=== PATIENT | female | born 1980 | race Caucasian/White ===

== ENCOUNTER → 2021-06-11 10:23 | Outpatient (CLI) | payer BC, SELFPAY ==
--- NOTE | ~2021-06-11 | US_ITS ---
EXAMINATION: US transvaginal DATE: 06/11/2021 10:46 INDICATION: Family history of fibroids. Comparison:No prior studies for comparison. TECHNIQUE: Multiple endovaginal sonographic images of the pelvis performed. FINDINGS: The uterus measures 9.5 x 4.6 x 6.3 cm. There is a uterine fibroid on the left at the fundu s measuring 1.8 x 1.6 x 1.4 cm. The endometrial complex measures 1 cm. The right ovary measures 3.6 x 1.5 x 2.9 cm and the left ovary measures 2.4 x 2.6 x 2.5 cm. There is a small partially cystic mass in the right ovary measuring 1.8 x 2.1 x 1.4 cm, likely an involuting c orpus luteal cyst. There are small follicles in each ovary. Normal doppler signal in both ovaries. There is no free fluid in the pelvis. There are no abnormal masses seen on either side. IMPRESSION: 1. Complex cystic lesion of the right ovary measuring up to 2.1 cm, most likely involuting corpus lut eal cyst, although follow-up ultrasound in 4-6 weeks recommended to assess for resolution. 2: Small uterine fibroid measuring 1.8 cm maximum dimension at the fundus. Reviewed, dictated and finalized at location A. [employer] ENGINE[employer] IMPRESSION: 1. Complex cystic lesion of the right ovary measuring up to 2.1 cm, most likely involuting corpus luteal cyst, although follow-up ultrasound in 4-6 weeks arcadio mmended to assess for resolution. 2: Small uterine fibroid measuring 1.8 cm maximum dimension at the fundus.
== END ==
PROVIDERS: Visit Provider Nurse Practitioner
DX: N92.0 Excessive and frequent menstruation with regular cycle (principal); N83.8 Other noninflammatory disorders of ovary, fallopian tube and broad ligament; D25.9 Leiomyoma of uterus, unspecified
CPT/HCPCS: 76830

== ENCOUNTER 2021-07-11 00:59 | Day surgery (SDC) | payer BC, SELFPAY ==
[2021-07-06 09:05] VITALS: BMI 25.7
--- NOTE | 2021-07-06 09:06 | PC.NURSE ---
Report to the Outpatient Waiting Room, entrance under the green pavilion located off [facility], at time _0600___ on date 07/11/21____. OR Time: . - You and your visitor will be asked a series of questions to screen for COVID 19 for your protection. - A mask is required within the hospital. Preoperative COVID Testing Requirements: No COVID Test needed if: (proof is required; if not received patient will have Rapid Test prior to entry) - Patient has received COVID Vaccine at least 14 days prior to procedure date or - Patient has positive COVID test result within last 90 days of surgery date. COVID Test needed if above criteria is not met If not COVID vaccinated a COVID test must be conducted within 72 hours of surgery and patient is asked to isolate self from time of testing until procedure. You will go to the [facility] for your COVID testing. The [facility] is located at the corner of [address] [facility]. You will only be called if COVID results are positive and your surgeon may reschedule your elective surgery date. Patients may have clear liquids (water, carbonated beverages, clear teas, apple juice) until 3 hours prior to surgery with a maximum of 20 ounces. - No food from midnight until time of surgery - Infants may have breast milk until 4 hours before surgery, infant formula 6 hours prior to surgery. - Children will be allowed to drink immediately following surgery. If applicable, please bring a bottle or sippy cup to assist with drinking. Juice, water, soda, and popsicles are readily available. For infants on formula, please bring formula the day of surgery. Pacifiers are allowed. Take the following medications with a SIP of water the morning of surgery: ____NONE Medications to discontinue per physician NONE Date to take last dose Please no make-up, nail yakut, hairspray, perfume, deodorant, or body powder the day of surgery. No jewelry (including any body piercings) or valuables the day of surgery, leave them at home. Please take a shower or bath the night before, or the morning of, surgery with an antibacterial soap. Wear comfortable, loose fitting clothing. Children are encouraged to wear pajamas. - Jewelry must be removed prior to entering the operating room. Rings and piercings that are not removed may be cut off. - The hospital will not accept responsibility for valuables. - Please leave all valuables, including medications, at home the day of surgery. If you are going home after surgery, a licensed front end driver must drive you home. - NO public transportation without another adult. - We recommend that an adult stay with you for 24 hours following discharge. - We also recommend that you do not drive, make important decision, drink alcoholic beverages, or take any drugs that were not prescribed by your health care provider for at least 24 hours after your discharge time. For Pediatric surgeries, we recommend two adults accompany the child home (only one inside the building at this time). One visitor will be allowed to accompany the patient into the hospital. Patients visitor will be instructed to remain with patient at all times or leave the building. We will allow the visitor to come back to the postoperative area when patient is ready. Follow any additional instructions given to you from your surgeon. Telephone instructions given to _PATIENT and asked if any additional questions and then verbalized understanding. Patient advised to call surgeon office or pre surgery nurse liaison [phone] if any additional questions.
[2021-07-11] MEDS: ACETAMINOPHEN 500 MG TABLET 1000 MG PO (06:30)
--- NOTE | 2021-07-11 06:37 | P.PNAN_ITS ---
Anes - Initial Pre Proc Eval Procedure: Operation Date: 07/11/21 07:30 Proposed Procedures p Hysteroscopy with Dilation and Curettage - Chiqui Julien MD Date/Time: 07/11/21 06:37 Surgeon: Chiqui Julien MD Pre Op Diagnosis: Menorrhagia with Anemia Patient Data Age: 40 Gender: F Height: 1.63 m Weight: 68 kg Allergies Allergy/AdvReac Type Severity Reaction Status Date / Time hydrocodone Allergy Mild Nausea and Unverified 07/06/21 08:59 Vomiting Home Medications Medication Instructions Recorded Confirmed Type ferrous sulfate [Iron (ferrous 325 mg PO DAILY 07/06/21 07/06/21 History sulfate)] Patient hx anesthesia problems: none Family hx anesthesia problems: none Results Review: All pre-operative results and documents have been reviewed as part of the pre-operative evaluation. [facility] Past Medical History Medical History (Updated 07/11/21 @ 06:37 by Jonathan Macedo MD) Anemia Surgical History Surgical History (Updated 07/11/21 @ 06:37 by Jonathan Macedo MD) Status post wisdom tooth extraction Social History Social History Tobacco type: cigarettes Additional smoking assessment comments: RARE CIGARETTE USE Alcohol intake: current Alcohol use details: TWICE A MONTH Living arrangements: with family Anes - Eval Final PreProcedure Day of Procedure 07/11/21 06:37 Patient weight: normal Heart: regular rate and rhythm Lungs: clear to auscultation Airway: Mallampati scale class 1 Neurological: alert and oriented Last oral intake: >/= 8 hours ASA classification: II Emergent: no Anesthetic plan: proceed Anesthesia type and monitoring: general GIVS and standard monitoring Results Review: All pre-operative results and documents have been reviewed as part of the pre-operative evaluation. Informed Consent: The patient's anesthetic plan and its attendant risks and benefits were discussed with the patient/family/POA. Questions were solicited and answers provided to the satisfaction of the patient/family/POA.
[2021-07-11 07:10] VITALS: BP 129/88; PULSE 108; RESP 14; TEMP 37.1; O2SAT 100
--- NOTE | 2021-07-11 07:11 | WPDHPUPDATE1 ---
History and Physical Update Update Date/Time: 07/11/21 07:11 History and Physical has been reviewed, including an updated exam of the patient. There are NO changes in the patient's condition. Risks, benefits, and alternatives have been discussed and questions answered. Patient agrees to proceed with procedure.
--- NOTE | 2021-07-11 07:11 | PM.HPGS ---
History of Present Illness History of Present Illness Consent: Risks, benefits, and alternatives have been discussed and questions answered. Patient agrees to proceed with procedure. Chief complaint: Menorrhagia with Anemia Narrative: Ghislaine Saleem is a 40 year old female with regular but heavy cycles beginning in February of 2021. Patient presented as a new patient in June. Blood work revealed hemoglobin of 10.4. Ultrasound reveals a normal size uterus at 9.5cm with a small left fundal fibroid at 1.8cm. It was recommended to proceed with D&C hysteroscopy. Risks of infection, bleeding, perforation, and fluid imbalance were reviewed. Possible pathology was reviewed. Patient voiced understanding and agrees to proceed. Review of Systems Review of Systems: not repeated day of surgery; patient states no changes in status Genitourinary: Genitourinary: Reports other [facility] Past Medical History Medical History (Updated 07/11/21 @ 07:14 by Chiqui Julien MD) Anemia (normal spontaneous vaginal delivery) x2 Surgical History Surgical History (Updated 07/11/21 @ 06:37 by Jonathan Macedo MD) Status post wisdom tooth extraction Social History Social History Tobacco type: cigarettes Additional smoking assessment comments: RARE CIGARETTE USE Alcohol intake: current Alcohol use details: TWICE A MONTH Living arrangements: with family Meds Home Medications and Allergies Home Medications Medication Instructions Recorded Confirmed Type ferrous sulfate [Iron (ferrous 325 mg PO DAILY 07/06/21 07/06/21 History sulfate)] Allergies Allergy/AdvReac Type Severity Reaction Status Date / Time hydrocodone Allergy Mild Nausea and Unverified 07/06/21 08:59 Vomiting Exam Const: General: healthy appearing and alert Orientation/consciousness: patient oriented x3 Resp: Effort & Inspection: normal respiratory effort Auscultation: clear to auscultation bilaterally Cardio: Rate: regular rate Rhythm: regular rhythm GI: GI Palp: Yes Soft to palpation, No Tenderness to palpation present (GI) and No Palpable mass present : External Female Exam: normal external appearance Speculum Exam - Vagina: normal appearance of the vagina and normal vaginal discharge Speculum Exam - Cervix: normal appearance of the cervix Bimanual exam- vagina & uterus: uterine size normal and consistency normal Bimanual Exam- Adnexa, other: normal adnexae and No adnexal tenderness Neuro: General: patient oriented x3 Assessment and Plan Assessment and plan (1) Menorrhagia: Code(s): N92.0 - Excessive and frequent menstruation with regular cycle Status: Acute Assessment and Plan: Plan to proceed with D&C hysteroscopy
[2021-07-11] MEDS: LACTATED RINGERS 1,000 ML 30 ML IV CONT (07:15)
[2021-07-11 07:17] VITALS: BMI 25.4
[2021-07-11 07:54] VITALS: BP 119/74; PULSE 87; RESP 19; O2SAT 100
--- NOTE | 2021-07-11 08:07 | W.PM.PROC2 ---
Procedure Note - Detailed Date of Procedure 07/11/21 Pre-op Diagnosis Menorrhagia with Anemia Post-op Diagnosis Same Procedure Performed D&C hysteroscopy with MyoSure resection of polyp Surgeon Chiqui Julien MD Anesthesia MAC and Local Findings The uterus sounds to 10cm. There was a polyp on the left lateral wall. The remainder of the endometrium appears grossly normal. Description of Procedure The patient is taken to the operating room and placed under anesthesia in the dorsal lithotomy position. A bivalve speculum was placed in the vagina, the cervix is grasped on the anterior lip with a tenaculum, the cervix was injected with 1% lidocaine in each quadrant, and the uterus is sounded to 10cm. The cervix was then serially dilated to an 8 Hegar. Diagnostic hysteroscope was placed with the stated findings. The MyoSure device is opened in placed. Under direct visualization the polyp was removed in its entirety. The MyoSure device is removed in the medium sharp curette used to curette the remainder of the endometrium until a good uterine cry was noted in all areas. All instruments were then removed and the patient awakened from anesthesia. Sponge, needle, and instrument counts are correct per the OR staff. Patient was taken to the recovery room in stable condition. Estimated Blood Loss 5 Drains No Packing No Pathology Yes (Endometrial shavings and curettings) Complications No immediate complications Condition Stable Disposition PACU
[2021-07-11 08:20] VITALS: BP 114/77; PULSE 90; RESP 16; O2SAT 100
[2021-07-11 08:45] VITALS: BP 113/73; PULSE 89; RESP 16
== END 2021-07-11 08:55 | disposition home or self-care (01) ==
PROVIDERS: Visit Provider Obstetrics & Gynecology Gynecology
PROC: 0U5B8ZZ Destruction of Endometrium, Via Natural or Artificial Opening Endoscopic (ICD-10-PCS; CPT 58563; principal; 2021-07-11 07:30)
DX: N92.0 Excessive and frequent menstruation with regular cycle (principal); N84.0 Polyp of corpus uteri; D64.9 Anemia, unspecified; Z72.0 Tobacco use
CPT/HCPCS: 58558; 88305; A9270; J2250; J2704; J3010; J7120

== ENCOUNTER → 2021-07-29 16:03 | Outpatient (CLI) | payer BC, SELFPAY ==
--- NOTE | ~2021-07-29 | MM_ITS ---
EXAMINATION: MM screening ruddy BI w koko HISTORY: Screening TECHNIQUE: Craniocaudal and mediolateral oblique 3-D tomosynthesis images were obtained and synthetic 2-D images were generated. CAD analysis was submitted and interpreted. COMPARISON: No prior mammogram is available for comparison at this institution. BREAST PARENCHYMAL COMPOSITION: The breasts are heterogeneously dense, which may obscure small masses . FINDINGS: There are focal asymmetries in the lower inner quadrant of the left breast posteriorly. The re are no suspicious masses, calcifications or architectural distortion in the right breast to sugges t malignancy. IMPRESSION: 1. Left breast asymmetry, lower inner quadrant. 2. Additional mammographic views and possible breast ultrasound are recommended. BI-RADS Category 0: Incomplete: Needs additional imaging evaluation. Reviewed, dictated and finalized at location A. IMPRESSION: 1. Left breast asymmetry, lower inner quadrant. 2. Additional mammographic views and possible breast ultrasound are recommended . BI-RADS Category 0: Incomplete: Needs additional imaging evaluation.
== END ==
PROVIDERS: PCP Nurse Practitioner; Visit Provider Nurse Practitioner
DX: Z12.31 Encounter for screening mammogram for malignant neoplasm of breast (principal); R92.8 Other abnormal and inconclusive findings on diagnostic imaging of breast
CPT/HCPCS: 77063; 77067

== ENCOUNTER 2021-08-25 07:49 | Outpatient (CLI) | payer BC, SELFPAY ==
--- NOTE | ~2021-08-25 | MM_ITS ---
EXAMINATION: MM diagnostic ruddy LT w koko HISTORY: Focal asymmetry of the left breast on screening mammogram TECHNIQUE: Additional 3-D tomosynthesis images of the left breast were performed and synthetic 2-D im ages were generated. CAD analysis was submitted and interpreted. COMPARISON: 07/29/2021 FINDINGS: No persistent focal asymmetry is identified with spot compression views of the left breast. There is no suspicious mass, calcification, or architectural distortion. IMPRESSION: 1. No mammographic evidence of malignancy. 2. Recommend routine screening mammography in one year. BI-RADS Category 1: Negative Reviewed, dictated and finalized at location A.
== END 2021-08-25 07:50 ==
PROVIDERS: PCP Nurse Practitioner; Visit Provider Nurse Practitioner
DX: R92.8 Other abnormal and inconclusive findings on diagnostic imaging of breast (principal)
CPT/HCPCS: 77061; 77065; G0279

== ENCOUNTER → 2022-08-18 13:36 | Outpatient (CLI) | payer BC, SELFPAY ==
--- NOTE | ~2022-08-18 | MM_ITS ---
EXAMINATION: MM screening ruddy BI w koko HISTORY: Screening mammogram TECHNIQUE: Craniocaudal and mediolateral oblique 3-D tomosynthesis images were obtained and synthetic 2-D images were generated. CAD analysis was submitted and interpreted. COMPARISON: 08/25/2021, 07/29/2021 BREAST PARENCHYMAL COMPOSITION: The breasts are heterogeneously dense, which may obscure small masses . FINDINGS: No suspicious mass, calcification, or architectural distortion are identified in either bry ast to suggest malignancy. There has been no suspicious interval change. IMPRESSION: 1. No mammographic evidence of malignancy. 2. Recommend routine screening mammography in one year. BI-RADS Category 1: Negative Reviewed, dictated and finalized at location A.
== END ==
PROVIDERS: PCP Obstetrics & Gynecology Gynecology; Visit Provider Nurse Practitioner
DX: Z12.31 Encounter for screening mammogram for malignant neoplasm of breast (principal)
CPT/HCPCS: 77063; 77067

== ENCOUNTER 2023-10-29 15:10 | Outpatient (CLI) | payer BC, SELFPAY ==
--- NOTE | ~2023-10-29 | MM_ITS ---
EXAMINATION: MM screening ruddy BI w koko HISTORY: Screening TECHNIQUE: Craniocaudal and mediolateral oblique 3-D tomosynthesis images were obtained and synthetic 2-D images were generated. CAD analysis was submitted and interpreted. COMPARISON: 07/29/2021 BREAST PARENCHYMAL COMPOSITION: Dense: The breasts are heterogeneously dense, which may obscure small masses FINDINGS: There is no evidence of suspicious mass, calcification, or architectural distortion to sugg est malignancy in either breast. There has been no suspicious interval change. IMPRESSION: 1. No mammographic evidence of malignancy. 2. Recommend routine screening mammography in one year. BI-RADS Category 1: Negative Reviewed, dictated and finalized at location B.
== END 2023-10-29 15:11 ==
PROVIDERS: PCP Obstetrics & Gynecology Gynecology; Visit Provider Obstetrics & Gynecology Gynecology
DX: Z12.31 Encounter for screening mammogram for malignant neoplasm of breast (principal)
CPT/HCPCS: 77063; 77067

== ENCOUNTER 2024-10-30 15:53 | Outpatient (CLI) | payer BC, SELFPAY ==
--- NOTE | ~2024-10-30 | MM_ITS ---
EXAMINATION: MM screening ruddy BI w koko HISTORY: Screening TECHNIQUE: Craniocaudal and mediolateral oblique 3-D tomosynthesis images were obtained and synthetic 2-D images were generated. CAD analysis was submitted and interpreted. COMPARISON: Comparison to multiple prior studies sequentially, with oldest reviewed study dated 07/29. BREAST PARENCHYMAL COMPOSITION: The breasts are heterogeneously dense, which may obscure small masses . FINDINGS: There is no evidence of suspicious mass, calcification, or architectural distortion to sug gest malignancy in either breast. IMPRESSION: 1. No mammographic evidence of malignancy. 2. Recommend routine screening mammography in one year. BI-RADS Category 1: Negative Reviewed, dictated and finalized at location B.
== END 2024-10-30 15:54 | disposition home or self-care (01) ==
LOC: MICIMG 16:01
PROVIDERS: PCP Obstetrics & Gynecology Gynecology; Visit Provider Nurse Practitioner
DX: Z12.31 Encounter for screening mammogram for malignant neoplasm of breast (principal)
CPT/HCPCS: 77063; 77067